=== PATIENT | male | born 1950 | race Caucasian/White ===

== ENCOUNTER 2024-05-03 13:41 | Emergency (ER) | payer OTHER, MEDICARE ==
[~2024-05-03] VITALS: Ht 182.9 cm; Wt 122.7 kg
[2024-05-03] MEDS ORDERED: FINA5TAB2 PO (13:59)
[2024-05-03] MEDS ORDERED: ELIQ5TAB PO (13:59)
[2024-05-03] MEDS ORDERED: JARD1TAB PO (13:59)
[2024-05-03] MEDS ORDERED: LIPI20TA PO (13:59)
[2024-05-03] MEDS ORDERED: FLOM0.4C39 PO (13:59)
[2024-05-03] MEDS ORDERED: CARV6.25 PO (13:59)
[2024-05-03] MEDS ORDERED: MAGN400C PO (13:59)
[2024-05-03] MEDS ORDERED: TORS20TA2 PO (13:59)
[2024-05-03] MEDS ORDERED: ENTR1TAB PO (13:59)
[2024-05-03] MEDS ORDERED: AMIO200T49 PO (13:59)
[2024-05-03] MEDS ORDERED: OMEP-173 PO (13:59)
[2024-05-03] MEDS ORDERED: ASPI81TA26 PO (13:59)
[2024-05-03] MEDS: BOOSTRIX VACCINE (TETANUS/DIPHTH/ACEL. PERTUSSIS) 0.5ML SYR IM ONE (16:13)
[2024-05-03] MEDS: LIDOCAINE 1% MDV 20ML VIAL IM ONE (18:20)
[2024-05-03] MEDS: DERMABOND TOPICAL SKIN ADHESIVE TOP ONE ×2 (19:15→19:25)
[2024-05-03 19:33] VITALS: BP 155/75; TEMP 97.3; O2SAT 96
== END 2024-05-03 19:48 | disposition home or self-care (01) ==
LOC: M ED 13:41
DX: S81.812A Laceration without foreign body, left lower leg, initial encounter (principal); W19.XXXA Unspecified fall, initial encounter; Y92.009 Unspecified place in unspecified non-institutional (private) residence as the place of occurrence of the external cause; Y93.9 Activity, unspecified; Y99.9 Unspecified external cause status; I10 Essential (primary) hypertension; E78.00 Pure hypercholesterolemia, unspecified; I20.9 Angina pectoris, unspecified; I48.91 Unspecified atrial fibrillation; K21.9 Gastro-esophageal reflux disease without esophagitis; E11.9 Type 2 diabetes mellitus without complications; N40.0 Benign prostatic hyperplasia without lower urinary tract symptoms; Z79.82 Long term (current) use of aspirin; Z79.01 Long term (current) use of anticoagulants; Z79.899 Other long term (current) drug therapy